=== PATIENT | female | born 1990 | race Caucasian/White ===

== ENCOUNTER 2022-12-13 15:30 | Emergency (ER) | payer SELFPAY ==
[~2022-12-13] VITALS: Ht 165.1 cm; Wt 76.5 kg
[2022-12-13 16:25] VITALS: BP 127/81
[2022-12-13] MEDS ORDERED: BACDST PO (16:42)
[2022-12-13] MEDS ORDERED: cefTRIAXone SOD 1,000 MG VL IM ONE (16:45)
== END 2022-12-13 16:57 | disposition home or self-care (01) ==
LOC: ER 15:30
DX: L03.115 Cellulitis of right lower limb (principal)
CPT/HCPCS: 96372; 99283; J0696